=== PATIENT | male | born 1970 | race Caucasian/White ===

== ENCOUNTER 2022-09-24 07:39 | Outpatient (CLI) | payer SELFPAY | END 2022-09-24 23:59 | disposition home or self-care (01) | LOC: LAB 07:39 | PROVIDERS: ATTEND Internal Medicine Interventional Cardiology | DX: Z01.812 Encounter for preprocedural laboratory examination (principal); Z20.822 Contact with and (suspected) exposure to COVID-19 ==

== ENCOUNTER 2022-09-25 07:16 | Day surgery (SDC) | payer SELFPAY ==
[2022-09-25 07:44] LABS: HEMATOCRIT 45.1 % (36.7-47.1); MEAN CORPUSCULAR HEMOGLOBIN 31.6 uug (23.8-33.4); MEAN CORPUSCULAR VOLUME 93.6 fL (73.0-96.2); PLATELET COUNT (AUTO) 259 K/uL (152-348)
[2022-09-25 07:50] LABS: *BILIRUBIN,URIN NEGATIVE (NEGATIVE); *BLOOD, URINE NEGATIVE (NEGATIVE); *CLARITY,URINE CLEAR (CLEAR); *COLOR,URINE YELLOW (YELLOW); *KETONES,URINE NEGATIVE (NEGATIVE); *UROBILINOGEN,URINE 0.2 E.U./dl (NORMAL); LEUKOCYTE ESTERASE ,URINE NEGATIVE (NEGATIVE); NITRITE, URINE NEGATIVE (NEGATIVE); PH,URINE 5.5 (5.0-8.0); UGLUCOSE NEGATIVE (NEGATIVE)
[2022-09-25 07:52] LABS: CREATININE 0.9 mg/dL (0.6-1.3)
[2022-09-25 07:54] LABS: POTASSIUM 4.9 mmol/L (3.5-5.1)
[2022-09-25] MEDS ORDERED: PROPOFOL 200 MG/20 ML BOTTLE ONE ×2 (08:00)
[2022-09-25] MEDS ORDERED: RIVAROXABAN 10 MG TABLET PO ONE (09:30)
== END 2022-09-25 10:00 | disposition home or self-care (01) ==
LOC: DS 07:16
PROVIDERS: ATTEND Internal Medicine Interventional Cardiology
DX: I48.19 Other persistent atrial fibrillation (principal); I08.1 Rheumatic disorders of both mitral and tricuspid valves; I10 Essential (primary) hypertension; Z79.899 Other long term (current) drug therapy; Z98.890 Other specified postprocedural states
CPT/HCPCS: 92960; 93312; 71045; 80048; 81003; 85025; 85730; 36415; 93005 ×2; J7120; A4663; J3490